=== PATIENT | male | born 1970 | race Caucasian/White ===

== ENCOUNTER → 2018-12-08 | Outpatient (CLI) | payer OTHER | LOC: FIMAGING 10:07 ==

== ENCOUNTER 2018-12-19 05:59 | Observation (INO) | payer OTHER ==
[2018-12-19] MEDS ORDERED: ROPIVACAINE 0.2% 80 MG, EPINEPHrine 0.2 MG, KETOROLAC TROMETHAMINE 30 MG in SYRINGE 0 ML IU ONE (06:00)
[2018-12-19] MEDS ORDERED: TRANEXAMIC ACID 3,000 MG in NS (SYRINGE) 50 ML IRR ONE (06:00)
--- NOTE | 2018-12-19 06:05 | PDHPUP ---
History & Physical Update H&P update statement: This history and physical update is based on an assessment of the patient which was completed after admission or registration (within 24 hours), but prior to the surgery/procedure. H&P update: H&P reviewed & patient examined, no change in patient's condition since H&P completed
[2018-12-19] MEDS ORDERED: DEXAMETHASONE 4 MG/ML VIAL IVP ONE (06:08)
[2018-12-19] MEDS ORDERED: ACETAMINOPHEN 325 MG TAB PO ONE (06:08)
[2018-12-19] MEDS ORDERED: FAMOTIDINE 20 MG TAB PO ONE (06:08)
[2018-12-19] MEDS ORDERED: ceFAZolin 2 GM/DEXTROSE 100 ML IV ONE (06:08)
[2018-12-19] MEDS ORDERED: LR 1,000 ML IV ONE (06:09)
[2018-12-19] MEDS ORDERED: LIDOCAINE 1% 2 ML INJ ID PRN (06:09)
[2018-12-19] MEDS ORDERED: LIDOCAINE 1% 2 ML INJ ONE (06:27)
[2018-12-19] MEDS ORDERED: TRANEXAMIC ACID 3,000 MG/50 ML BAG IRR ONE (06:51)
[2018-12-19] MEDS ORDERED: MIDAZOLAM 2 MG/2 ML VIAL ONE (06:57)
[2018-12-19] MEDS ORDERED: MIDAZOLAM 2 MG/2 ML VIAL IVP ONE (06:58)
[2018-12-19] MEDS ORDERED: ONDANSETRON 4 MG/2 ML VIAL IVP PRN ×2 (06:59→07:04)
[2018-12-19] MEDS ORDERED: LR 500 ML IV PRN (06:59)
[2018-12-19] MEDS ORDERED: HYDROCODONE/APAP 5/325 TAB PO PRN (06:59)
[2018-12-19] MEDS ORDERED: DIAZEPAM 10 MG/2 ML SYR IVP PRN (06:59)
[2018-12-19] MEDS ORDERED: NALOXONE HCL 0.4 MG/ML INJ IVP PRN (06:59)
[2018-12-19] MEDS ORDERED: fentaNYL 100 MCG/2 ML INJ IVP PRN (06:59)
--- NOTE | 2018-12-19 06:59 | PDANEPAE ---
ANE Past Medical History - Cardiovascular History Hx Hypertension: No Hx Arrhythmias: No Hx Chest Pain: No Hx Coronary Artery / Peripheral Vascular Disease: No Hx CHF / Valvular Disease: No Hx Palpitations: No - Pulmonary History Hx COPD: No Hx Asthma/Reactive Airway Disease: No Hx Recent Upper Respiratory Infection: No Hx Oxygen in Use at Home: No Hx Sleep Apnea: No Sleep Apnea Screening Result - Last Documented: Positive - Neurologic History Hx Cerebrovascular Accident: No Hx Seizures: No Hx Dementia: No - Endocrine History Hx Diabetes: No Obesity: moderate - Renal History Hx Renal Disorders: No - Liver History Hx Hepatic Disorders: No - Neurological & Psychiatric Hx Hx Neurological and Psychiatric Disorders: No - Cancer History Hx Cancer: No - Congenital Disorder History Hx Congenital Disorders: No - GI History GERD: no Hx Gastrointestinal Disorders: No - Other Health History Other Health History: NEG - Chronic Pain History Chronic Pain: Yes (R KNEE) - Surgical History Prior Surgeries: KNEE SCOPE X3. R KNEE OPEN SURG ANE Review of Systems Review of Systems: - Exercise capacity METS (RN): 4 METS ANE Patient History - Allergies Allergies/Adverse Reactions: Penicillins Allergy (Verified 12/18/18 12:15) Unknown - Home Medications Home medications: home medication list seen and reviewed Home Medications: Pravastatin Sodium [Pravachol] 80 mg PO HS 12/05/18 [Last Taken 12/17/18] - NPO status NPO Status: no food or drink >8 hours NPO Since - Liquids (Date): 12/19/18 NPO Since - Liquids (Time): 03:50 NPO Since - Solids (Date): 12/18/18 NPO Since - Solids (Time): 19:00 - Anes Hx Anes Hx: no prior problems - Smoking Hx Smoking Status: Never smoked - Family Anes Hx Family Hx Anesthesia Complications: NEG ANE Labs/Vital Signs - Vital Signs Blood Pressure: 124/91 Heart Rate: 84 Respiratory Rate: 16 O2 Sat (%): 92 Height: 175.26 cm Weight: 113.398 kg ANE Physical Exam - Airway Neck exam: FROM Mallampati Score: Class 2 Mouth exam: normal dental/mouth exam - Pulmonary Pulmonary: no respiratory distress, no rales or rhonchi, clear to auscultation - Cardiovascular Cardiovascular: regular rate and rhythym, no murmur, rub, or gallop - ASA Status ASA Status: II ANE Anesthesia Plan Anesthesia Plan: spinal Regional Anesthesia: single shot NB, adductor canal FNB
[2018-12-19] MEDS ORDERED: DIPHENOXYLATE/ATROPINE LOMOTIL 1 TAB PO PRN (07:04)
[2018-12-19] MEDS ORDERED: MAGNESIUM HYDROXIDE 30 ML UDCUP PO PRN (07:04)
[2018-12-19] MEDS ORDERED: PROMETHAZINE HCL 25 MG/ML INJ IVP PRN (07:04)
[2018-12-19] MEDS ORDERED: LACTULOSE 20 GM/30 ML UDCUP PO PRN (07:04)
[2018-12-19] MEDS ORDERED: diphenhydrAMINE 25 MG CAP PO PRN (07:04)
[2018-12-19] MEDS ORDERED: METOCLOPRAMIDE 10 MG/2 ML VIAL IVP PRN (07:04)
[2018-12-19] MEDS ORDERED: ONDANSETRON DISINTEGRATING 4 MG TAB PO PRN (07:04)
[2018-12-19] MEDS ORDERED: BISACODYL 10 MG SUPP PR PRN (07:04)
[2018-12-19] MEDS ORDERED: PROMETHAZINE HCL 25 MG SUPPR PR PRN (07:04)
[2018-12-19] MEDS ORDERED: TEMAZEPAM 15 MG CAP PO PRN (07:04)
[2018-12-19] MEDS ORDERED: CYCLOBENZAPRINE 10 MG TAB PO PRN (07:04)
[2018-12-19] MEDS ORDERED: POLYETHYLENE GLYCOL 3350 17 GM PKT PO PRN (07:04)
[2018-12-19] MEDS ORDERED: PROPOFOL/EMULSION 500 MG/50 ML BOTTLE IV ONE (07:07)
[2018-12-19] MEDS ORDERED: DEXAMETHASONE 4 MG/ML VIAL ONE ×2 (07:08)
[2018-12-19] MEDS ORDERED: LR 1,000 ML IV SCH (07:30)
[2018-12-19] MEDS ORDERED: PROPOFOL 200 MG/20 ML VIAL ONE ×2 (07:47→08:10)
[2018-12-19] MEDS ORDERED: ROPIVACAINE HCL 150 MG/30 ML INJ ONE (08:30)
--- NOTE | 2018-12-19 09:11 | POSTANESTH ---
Post Anesthetic Evaluation Cardiovascular Status: Normal, Stable, Similar to Pre-Op Cond Respiratory Status: Normal, Stable, Similar to Pre-op Cond. Level of Consciousness/Mental Status: Can Participate in Eval, Alert and Oriented Pain Control: Adequate, Prn Tx Ordered Nausea/Vomiting Control: Adequate, Prn Tx Ordered Complications Possibly Related to Anesthesia: None Noted (Rt adductor canal block performed in PACU with 20ml 0.5% ropivacaine. No complications.)
--- NOTE | 2018-12-19 09:31 | POSTOPPROG ---
Post Op Note Date of Operation: 12/19/18 Surgeon: Marisa Padron Cloth Examiner: Dawna Renae PAC Anesthesiologist: Dr. Aaron Christine Anesthesia: Spinal, Other (Specify) (adductor canal block) Pre-op Diagnosis: right knee OA Post-op Diagnosis: same Indication: right knee pain Procedure: RTKA, robot assisted Findings: severe OA of right knee Inf/Abcess present in the surg proc area at time of surgery?: No EBL: 50-100
[2018-12-19] MEDS: SENNOSIDES/DOCUSATE SODIUM TAB PO SCH ×2 (10:05→20:20)
[2018-12-19] MEDS: ACETAMINOPHEN 325 MG TAB PO SCH ×2 (13:29→20:19)
[2018-12-19] MEDS: ceFAZolin 2 GM/DEXTROSE 100 ML IV SCH ×2 (13:30→21:49)
--- NOTE | 2018-12-19 15:20 | SOAPPROG ---
SOAP Progress Note Assessment/Plan: Assessment: s/p right TKA, Taye assist - POD 0 - performed by Dr. Padron Doing well Plan: Begin d/c planning - likely home tomorrow. His will help care for him post- op Continue VTE ppx- aspirin 81 mg BID, TYRON hose, SCDs Continue PT efforts - WBAT with assistance initially, ROM as tolerated but he will limit knee flexion to < 90 degrees for 5-7 days Continue oral pain medication Subjective: Patient states he is doing well, pain is tolerable at this time. Reports his will help take care of him post-op. He denies SOB, CP, fever, chills, nausea. Objective: Vital Signs Temp Pulse Resp BP Pulse Ox 36.8 C 99 18 123/76 H 94 12/19/18 15:15 12/19/18 15:15 12/19/18 15:15 12/19/18 15:15 12/19/18 15:15 12/18/18 12/19/18 12/20/18 05:59 05:59 05:59 Intake Total 730 Output Total 700 Balance 30 Patient resting in bed, his is present in the room. RLE: Wound dressings on the anterior knee are clean, dry and intact. No erythema, ecchymosis. Thigh high TYRON hose and SCDs are in place. Lower leg compartments are soft and nontender. Negative Homans sign bilaterally. He can actively DF and PF his right foot and great toe against resistance. Grossly NVI distally. ICD10 Worksheet Patient Problems: Problems Problem Status Onset Unilateral primary osteoarthritis, right knee Acute
[2018-12-19] MEDS: ASPIRIN 81 MG CHEWABLE TAB PO SCH (20:20)
[2018-12-19] MEDS: FAMOTIDINE 20 MG TAB PO SCH (20:21)
[2018-12-19] MEDS ORDERED: PRAVASTATIN SODIUM 40 MG TAB PO SCH (21:00)
[2018-12-19] MEDS: oxyCODONE IR 5 MG TAB PO PRN (22:21)
[2018-12-20] MEDS: ACETAMINOPHEN 325 MG TAB PO SCH ×2 (01:41→06:32)
[2018-12-20] MEDS: oxyCODONE IR 5 MG TAB PO PRN ×2 (05:15→09:31)
[2018-12-20 07:43] VITALS: BP 115/81
[2018-12-20] MEDS: SENNOSIDES/DOCUSATE SODIUM TAB PO SCH (07:55)
[2018-12-20] MEDS: FAMOTIDINE 20 MG TAB PO SCH (07:56)
[2018-12-20] MEDS: ASPIRIN 81 MG CHEWABLE TAB PO SCH (07:56)
--- NOTE | 2018-12-20 08:17 | SOAPPROG ---
SOAP Progress Note Assessment/Plan: Assessment: s/p right TKA, Taye assist - POD 1 - performed by Dr. Padron Doing well Plan: Continue d/c planning - home today. His will help care for him post-op Continue VTE ppx- aspirin 81 mg BID x 4 weeks, TYRON hose x 2 weeks Continue PT efforts - WBAT with walker as needed, ROM as tolerated but he will limit knee flexion to < 90 degrees for 5-7 days Continue oral pain medication Subjective: Patient states he is doing well, the [place] is a uncomfortable. Patient had a positive sleep apnea screening and reports he was not able to get an appointment with the [facility] for a couple weeks. Dr. Padron had me call their office to help expedite the process of getting the patient getting a CPAP machine (I left a voicemail at the [facility] and asked them to call me back). Patient denies SOB, CP, fever, chills, nausea, tingling, numbness. Objective: Vital Signs Temp Pulse Resp BP Pulse Ox 36.6 C 86 16 115/81 H 93 12/20/18 07:41 12/20/18 07:41 12/20/18 07:41 12/20/18 07:41 12/20/18 07:41 Laboratory Results 12/20/18 04:25 12/19/18 12/20/18 12/21/18 05:59 05:59 05:59 Intake Total 2540 Output Total 3000 Balance -460 Patient resting in bed, no acute distress. RLE: Wound dressings are clean, dry and intact. Mild diffuse edema about the knee. Lower leg compartments are soft and nontender. He can actively DF and PF his right foot and great toe against resistance. Grossly NVI distally. ICD10 Worksheet Patient Problems: Problems Problem Status Onset Unilateral primary osteoarthritis, right knee Acute
--- NOTE | 2018-12-20 08:24 | PDDCSUM ---
Discharge Summary Discharge Summary: ADMISSION DIAGNOSIS: Right knee severe degenerative arthritis DISCHARGE DIAGNOSIS: Right knee severe degenerative arthritis OPERATION PERFORMED: December 19, 2018, Right total knee arthroplasty, Taye robot assisted POSTOPERATIVE COMPLICATIONS: None CONDITION ON DISCHARGE: Improved HPI: The patient is a 48 year old male who has end-stage arthritis of his right knee. Clinical and radiographic features are consistent with this. Patient has failed attempts at conservative management, therefore, recommended operative right total knee replacement. DESCRIPTION OF HOSPITAL COURSE: The patient was admitted to the hospital on the morning of surgery and underwent a right total knee arthroplasty, Taye robot assisted. Postoperatively, patient was treated with multimodal DVT prophylaxis, including aspirin 81 mg twice per day, SCDs and TYRON hose. Patient was seen by PT and made good progress with ambulation and stairs. On the first post- operative day the patients H&H was 14.1/40.1. Patient was able to void spontaneously. Patient has done better than expected and would like to be discharged home today. At the time of discharge, patient was afebrile, wound was clean and dry. Patient is walking with a walker. DISPOSITION: The patient is discharged home and will have outpatient PT in the next 1-2 weeks. Patient may progress to full weightbearing on the right lower extremity as tolerated. TYRON stockings for 2 weeks during the day time. Aspirin 81 mg BID for 4 weeks. Patient has prescriptions for Celebrex, oxycodone for pain control. The [facility] was called to help expedite the process of obtaining a CPAP machine for the patient. The patient will be seen by Dr. Sutherland office in approximately 3 weeks. If there are any problems, patient is to call Dr. Sutherland office.
--- NOTE | 2018-12-20 08:37 | GOP ---
[f rep st] OPERATIVE REPORT DATE OF OPERATION: 12/19/2018 SURGEON: Deneen Padron MD CHIEF CRUISER: Lor Renae P.A.-C ANESTHESIA: Spinal. PREOPERATIVE DIAGNOSIS: Right knee osteoarthritis. POSTOPERATIVE DIAGNOSIS: Right knee osteoarthritis. PROCEDURE PERFORMED: Right total knee arthroplasty with computer navigation, robotic assist. FINDINGS: ESTIMATED BLOOD LOSS: 30 cc. INDICATIONS: The patient is a 48-year-old male with severe and progressive pain and deformity of the right knee unresponsive to conservative care. The risks and benefits of surgical intervention were explained in detail. DESCRIPTION OF PROCEDURE: The patient was brought to the operative room and placed on the table in t he supine position. Spinal anesthesia was induced without difficulty. A pneumatic tourniquet was appl ied about the right proximal thigh, and the leg was prepped and draped in a sterile fashion. The leg price was applied. After exsanguination by elevation the tourniquet was inflated to 250 mmHg. Incision was made anterior medial from the tibial tuberosity to a point 2 cm proximal to the superior pole of the patella. Medial parapatellar arthrotomy was carried out from the superior pole of the pa tella and posteriorly in line with the fibers of the Type II VMO. The medial collateral ligament was elevated and the infrapatellar fat pad was resected. Pathology: Severe tricompartmental osteoarthritis. The patella was everted and the articular surface was excised. A 58 mm patellar button was placed. Attention was turned first to the distal aspect of the femur. After exposure of the femur, 2 half pi ns were placed for fixation of the femoral array. In a similar fashion, 2 pins were placed anteromed ial on the tibia for fixation of the tibial array. External land marking and registration of the hip center was performed without difficulty. Internal femoral and tibial registration was carried out w ithout difficulty and the femoral and tibial checkpoints were placed and verified for accuracy. Attention was turned to the femur. The foot print for the size 5 femoral component was cut with the saw using the [employer] robotic system and verified for accuracy against the CT based plan. In a similar f ashion, the saw was used to cut the footprint for the size 5 tibial component using the Crackle system an d verified for accuracy against the CT based plan. The tibial articular surface was excised without d ifficulty, followed by the intercondylar box cut. The knee was extended and the remnants of the medial and lateral meniscus were excised. The posterior capsule was injected with ropivacaine, epinephrine and Toradol. A size 5 tibial tray was positioned . Trial reduction was then carried out. There was excellent range of motion, alignment, and stability using the 5 x 10 mm polyethylene. All trials were then removed. The joint was thoroughly irrigated and carefully dried. The prosthetic components were implanted. The permanent 5 x 10 mm polyethylene was placed without difficulty. The tourniquet was deflated and all bleeders were coagulated. The wound was thoroughly irrigated and closed using interrupted sutures of 2-0 Vicryl for the joint capsule. The subcu was closed with 3-0 V icryl and the skin with 4-0 Monocryl. Dermabond and Steri-Strips were applied followed by a compress ziyad dressing. The patient was then moved from the operating room to the recovery room in good conditi on, having tolerated the procedure well. /[id number]/MODL
[2018-12-20] MEDS ORDERED: PRAVASTATIN SODIUM 40 MG TAB PO SCH (09:00)
--- NOTE | 2018-12-20 13:58 | ASMTLACE ---
NICKE Length of stay for Answers: 2 days current admission Acuity / Level of Answers: No Care: Did the patient have an inpatient admission? Comorbidities - select Answers: Opioid dependence all that apply / Chronic pain # of Emergency department Answers: 0 visits in the last 6 months Score: 6 Date Signed: 12/20/2018 01:57 PM Electronically Signed By:NIK Delacruz
== END 2018-12-20 10:41 | disposition home or self-care (01) ==
LOC: F3N 05:59
PROVIDERS: ADMIT Orthopaedic Surgery; ATTEND Orthopaedic Surgery
DX: M17.11 Unilateral primary osteoarthritis, right knee (principal); G47.33 Obstructive sleep apnea (adult) (pediatric); E78.5 Hyperlipidemia, unspecified
CPT/HCPCS: 27447; 73560; 97116; 97161; 97530; G0378; J0171; J0690; J1100; J1885; J2250; J2704; J2795